=== PATIENT | male | born 1980 | race Caucasian/White ===

== ENCOUNTER 2018-02-05 23:20 | Emergency (ER) | payer BC ==
[2018-02-05] MEDS ORDERED: Acetaminophen 500 MG TAB ONE (23:35)
[2018-02-06 00:15] LABS: ALT (SGPT) 39 U/L (8-55); AST (SGOT) 28 U/L (5-34); Albumin 4.1 g/dL (3.5-5.0); Alkaline Phosphatase 52 U/L (40-150); Anion Gap 15 mmol/L (10-20); BUN (Urea Nitrogen) 15 mg/dL (8.9-20.6); Bilirubin, Total 0.4 mg/dL (0.2-1.2); Calc. Creatinine Clearance 0 mL/min (70-130); Calcium 9.2 mg/dL (7.8-10.44); Carbon Dioxide 23 mmol/L (22-29); Chloride 103 mmol/L (98-107); Estimated GFR-MDRD 74; Globulin 3.5 g/dL (2.4-3.5); Glucose 90 mg/dL (70-105); Potassium 3.7 mmol/L (3.5-5.1); Protein, Total 7.6 g/dL (6.0-8.3); Sodium 137 mmol/L (136-145)
[2018-02-06 00:17] LABS: Mean Corpuscular HGB CONC 34.3 g/dL (32.0-36.0); Mean Corpuscular Volume 81.5 fl (80.0-94.0); Mean Platelet Volume 7.8 fL (7.4-10.4); Platelet Count 193 thou/uL (130-400); RBC Distribution Width 11.6 % (11.5-14.5); Red Blood Cell (RBC) Count 4.98 mill/uL (4.70-6.10); White Blood Cell (WBC) Count 10.9 thou/uL (4.8-10.8)
[2018-02-06 00:19] LABS: Band 5 % (5-11); Lymphocytes 5 % (21-51); MDiff Complete? YES; Monocytes 5 % (0-10); Neutrophil 84 % (42-75)
[2018-02-06 00:48] LABS: Bilirubin Negative (Negative); Blood, Urine Trace (Negative); Clarity Clear (Clear); Glucose, Urine (Dipstick) Negative (Negative); Leukocyte Negative (Negative); Nitrite Negative (Negative); Protein, Urine (Dipstick) Negative (Neg-Trace); Urobilinogen 0.2 mg/dL (0.2-1.0); pH, Urine 8.5 (5.0-9.0)
[2018-02-06 00:59] LABS: Bacteria/HPF None Seen HPF (None Seen); Hyaline Casts/LPF 0-3 HYALINE CAST LPF (0-3 Hyaline); RBC/HPF 0-3 HPF (0-3); Squamous Epithelial 0-3 HPF (0-3); WBC/HPF 0-3 HPF (0-3)
[2018-02-06] MEDS ORDERED: Sodium Chloride 0.9% 100 ML ONE (01:45)
[2018-02-06] MEDS ORDERED: cefTRIAXone\\ROCEPHIN 2 GM VIAL ONE (01:45)
[2018-02-06 02:39] LABS: CSF Source CSF; Clarity Clear (Clear); Tube # 4
[2018-02-06 02:40] LABS: CSF Source CSF; Clarity Clear (Clear); RBC Count - Manual 3 /cumm (None Seen); RBC Count - Manual 315 /cumm (None Seen); Tube # 1; WBC/NonHematics Count - Manual 0 /cumm (0-5); WBC/NonHematics Count - Manual 5 /cumm (0-5)
[2018-02-06 03:02] LABS: CSF, Glucose 63 mg/dl (40-70); CSF, Protein 28 mg/dL (15-40)
[2018-02-06 03:04] LABS: Color Of CSF Supernatant COLORLESS (Colorless); Tube # 2; Unspun CSF Color COLORLESS (Colorless)
--- NOTE | 2018-02-06 09:28 | RAD ---
TWO VIEWS CHEST: DATE: 02/06/18. PROVIDED CLINICAL HISTORY: Cough. FINDINGS: Cardiac and mediastinal silhouette is within normal limits. Lungs appear clear. No pleural fluid or pneumothorax apparent. IMPRESSION: No evidence for an acute cardiopulmonary process. POS: [facility]
== END 2018-02-06 03:21 | disposition home or self-care (01) ==
LOC: SCSER 23:20
DX: R50.9 Fever, unspecified (principal); R51 Headache
CPT/HCPCS: 62270; 71046; 80053; 81003; 81015; 82945; 83605; 84157; 85025; 87040; 87070; 87081; 87205; 87430; 87804; 89051; 96361; 96365; J0696; J7050

== ENCOUNTER 2024-11-10 10:32 | Outpatient (CLI) | payer OTHER | END 2024-11-10 10:33 | disposition home or self-care (01) | LOC: BICMRI 10:32 | PROVIDERS: ATTEND Family Medicine Sports Medicine | DX: S83.241A Other tear of medial meniscus, current injury, right knee, initial encounter (principal) ==